=== PATIENT | female | born 1960 | race Caucasian/White ===

== ENCOUNTER → 2016-09-11 | Outpatient (CLI) | payer OTHER ==
[~2016-09-11] MED LIST: ACET500C14 PO; CHOL1CHW16 PO; CYAN500T13 PO; HYDR25TA5 PO; IBUP1CAP9 PO; LEVO100T7 PO; LORA-741 PO; MAGN1CAP2 PO; MAGNSUS5 PO; MISCCAP80 PO; MULT-506 PO; POTA10CA28 PO; ROPI0.25 PO; ROPI1TAB PO; TRAM-10 PO
--- NOTE | 2016-09-11 11:23 | DIAGNOSTIC IMAGING REPORT ---
ULTRASOUND OF THE THYROID GLAND CLINICAL HISTORY: Thyroid nodule. COMPARISON STUDY: Thyroid ultrasound dated 12/27/2013. TECHNIQUE: Real-time, grayscale, and color flow sonography of the thyroid gland is performed utilizing a high-frequency linear transducer. Images are reviewed in the transverse and longitudinal planes. FINDINGS: Right lobe: The right lobe of the thyroid gland is normal in size and homogeneous in echotexture, measuring 4.7 x 1.2 x 1.6 cm. A hypoechoic nodule in the upper pole measures 1.0 x 0.6 x 0.8 cm (previously measured 1.0 x 0.6 x 0.9 cm). Left lobe: The left lobe of the thyroid gland is normal in size and homogeneous in echotexture, measuring 4.5 x 1.1 x 4.5 cm. A 3 mm hypoechoic nodule is incidentally noted in the left lobe. This was present previously but not discretely measured. Isthmus: The thyroid isthmus is normal in appearance and measures 0.2 cm in AP diameter. IMPRESSION: 1. The thyroid gland is normal in size and homogeneous in echotexture. 2. A 1.0 cm nodule in the right lobe has not significantly change from 12/27/2013 and is of low suspicion. Electronically signed by: Simone Eddy M.D. 09/11/2016 11:22 AM Dictated Date/Time: 09/11/2016 11:11 AM
== END | disposition home or self-care (01) ==
LOC: C.ULTR 10:18
PROVIDERS: ATTEND Internal Medicine Endocrinology, Diabetes & Metabolism
DX: E04.1 Nontoxic single thyroid nodule (principal)

== ENCOUNTER → 2016-09-20 | Outpatient (CLI) | payer OTHER ==
[~2016-09-20] MED LIST changes: +GADAVIST IV PRN
--- NOTE | 2016-09-20 14:34 | DIAGNOSTIC IMAGING REPORT ---
LUMBAR SPINE MRI WITH AND WITHOUT CONTRAST HISTORY: Back pain. Peripheral neuropathy. LUMBAR PAIN, PROXIMAL LEG WEAKNESS TECHNIQUE: Multiplanar multisequence MRI of the lumbar spine was performed both before and after the intravenous administration of contrast. COMPARISON: None FINDINGS: For the purpose of the report the L5-S1 disc space will be located on axial image 27 of 30. Moderate degenerative disc change throughout the entire lumbar region. Findings consistent with a posterior laminectomy and fusion at the L4-L5 level. L1-L2: No significant central canal or neural foraminal narrowing. L2-L3: Minimal broad-based disc bulge. Minimal narrowing left neuroforamina. L3-L4: Mild broad-based disc bulge. Mild narrowing of the neuroforamina bilaterally. L4-L5: Prior laminectomy and fusion. No disc herniation or spinal stenosis. L5-S1: Prior laminectomy and fusion. No evidence of disc herniation or spinal stenosis. IMPRESSION: 1. Findings consistent with laminectomies and fusions at L4 and L5. 2. Mild broad-based disc bulge L3-L4 with mild/moderate narrowing of the neuroforamina bilaterally. 3. Minimal broad-based disc bulge L2-L3 with mild narrowing of the left neuroforamina. Electronically signed by: Riki Alvarez M.D. 09/20/2016 2:33 PM Dictated Date/Time: 09/20/2016 2:30 PM
== END | disposition home or self-care (01) ==
LOC: C.MRIBC 13:13
PROVIDERS: ATTEND Psychiatry & Neurology Neurology
DX: M47.816 Spondylosis without myelopathy or radiculopathy, lumbar region (principal); R29.898 Other symptoms and signs involving the musculoskeletal system

== ENCOUNTER 2022-07-09 08:14 | Observation (INO) ==
--- NOTE | 2022-07-01 12:02 | Anesthesiology Consultation ---
Date of Service July 01, 2022 Assessment & Plan (1) Encounter for pre-operative examination: Chart Review Chart Review: Acceptable Risk for Surgery and Patient NOT seen in Pre Admission Testing - Hx of PONV- patient will need to discuss with anesthesiologist DOS if scop patch needed - Pt scheduled as 23 hour observation- pt is NOT Same Day Joint candidate due to no PAT evaluation -COVID screening: Per PAT nursing assessment on 07/01/22. No known COVID-19 positive contacts or current COVID-19 related symptoms. Travel screen negative. Patient vaccinated for Covid. At surgeon discretion if preop Covid testing being done. Left knee arthroscopy, removal loose body 11/08/20= Done under [facility] with LMA #4. Atraumatic LMA insertion History Surgery Operation Date: 07/09/22 07:00 Proposed Procedures p Right Total Knee Arthroplasty - Fei Davenport MD Height/Weight Height: 5 ft 5 in Weight: 91.172 kg Allergies Allergy/AdvReac Type Severity Reaction Status Date / Time bisacodyl Allergy Mild VIOLENTLY Verified 07/01/22 10:50 ILL N &V &DIARRHEA morphine Allergy Unknown RASH Verified 07/01/22 10:50 Influenza Virus Vaccines Allergy SEE COMMENT Verified 07/01/22 10:50 hydrocodone AdvReac Mild DIZZY AND Verified 07/01/22 10:50 NAUSEA Medications Home Medications Medication Instructions Recorded Confirmed Last Taken cyanocobalamin (vitamin B-12) 1,000 mcg PO QPM 07/18/18 07/01/22 11/07/20 1,000 mcg tablet hydrochlorothiazide 25 mg tablet 25 mg PO QAM 07/18/18 07/01/22 11/07/20 lorazepam 0.5 mg tablet 0.5 mg PO HS 07/18/18 07/01/22 11/07/20 potassium chloride 10 mEq 20 meq PO BID 07/18/18 07/01/22 11/07/20 tablet,extended release ropinirole 0.25 mg tablet 0.25 mg PO HS 07/18/18 07/01/22 11/07/20 ropinirole 1 mg tablet 1 mg PO 07/18/18 07/01/22 11/07/20 cholecalciferol (vitamin D3) 50 150 mcg PO QAM 10/26/20 07/01/22 11/07/20 mcg (2,000 unit) capsule (Vitamin D3) vitamin B complex 1 ea PO QDL 10/26/20 07/01/22 11/07/20 Past Medical History Medical History DDD (degenerative disc disease) History of COVID-summer, not tested but had exposure and symptoms>resolved History of depression History of esophageal dilatation HTN (hypertension) Liver cyst monitoring-no changes Neuropathy Osteoporosis PONV (postoperative nausea and vomiting) requests possible scopolamine patch pre op Posterior tibial tendinitis PTSD (post-traumatic stress disorder) Spinal stenosis Thyroid nodule monitoring-no changes Past Family History Family History Daughter PONV (postoperative nausea and vomiting) Other No pertinent family history in first degree relatives Past Surgical History Surgical History History of bladder surgery bladder tack-"always gets a UTI if catheterized" History of cardiac catheterization approx 20 years ago - "heart was racing," no stents/angioplasty, done in [facility] [place]. History of colonoscopy History of esophagogastroduodenoscopy (EGD) History of hysterectomy History of lumbar surgery "CAGE PLACED" History of repair of hiatal hernia History of tonsillectomy Hx laparoscopic cholecystectomy Hx of arthroscopy of knee Hx of myringotomy w/tubes bilat. S/P thyroid biopsy benign Social History Smoking Status: Never smoker Do You Dip or Chew Tobacco: No Hx Alcohol Use: No Hx Substance Use: No substance use type: does not use Lab Results Anesthesia Preop Results Results Anesthesia Widget: WBC 4.47 K/ul (4.8-10.8) L 06/25/22 Hgb 13.7 g/dl (12.0-16.0) 06/25/22 Hct 40.9 % (37.0-47.0) 06/25/22 Plt 284 K/uL (130-400) 06/25/22 Na 139 mmol/L (136-145) 06/25/22 K 3.4 mmol/L (3.5-5.1) L 06/25/22 Cl 107 mmol/L (98-107) 06/25/22 CO2 27 mmol/L (21-32) 06/25/22 BUN 11 mg/dl (6-23) 06/25/22 Creat 0.69 mg/dl (0.6-1.2) 06/25/22 Glucose Level 121 mg/dl (70-99(Fasting)) H 06/25/22 PT 10.4 Seconds (9.0-12.0) 06/25/22 PTT 29.2 Seconds (21.0-31.0) 06/25/22 INR 1.0 (0.9-1.1) 06/25/22 Blood Type O Positive 06/25/22 Antibody Screen NEGATIVE 06/25/22 Testing Laboratory Results Blood Type O Positive 04/18/22 13:20 Antibody Screen NEGATIVE 04/18/22 13:20 Electrocardiogram Date: 04/18/22 Findings: + NSR @ (60bpm) and + no change from (November 07, 2019 per cardio ) Nonspecific ST abnormality Chest X-Ray Date: 04/18/22 Findings: + NAD Echocardiogram Date: 01/27/19 EF: 55-60% LV Function: normal RWMA: + none Other Findings: no LVH or no diastolic dysfunction AV sclerosis is mild, without significant AV stenosis Mild AR Mild MR RVSP is normal Other Testing Carotid Doppler 01/14/2019 = no sonographic evidence of hemodynamically significant stenosis in the right or left carotid arterial system. Antegrade flow is shown in vertebral arteries. Hypertension.
--- NOTE | 2022-07-04 08:32 | History and Physical Report ---
CHIEF COMPLAINT: Persistent right knee pain and discomfort. HISTORY OF PRESENT ILLNESS: The patient is a 62-year-old female who presents for surgical treatment of her right knee. She has got a long history of multiple orthopedic issues over the years. She has been bothered by progressive increasing right knee pain and discomfort that has gradually gotten wor se over the past several years. We have been putting intermittent injections, which have become less successful over time. She describes global pain. A little bit more lateral pain than medial. It i s increased with weightbearing. She would like to have her knee fixed. Of note, she does have a history of a left knee arthroscopy done about a year and a half ago. PAST MEDICAL HISTORY: 1. Hypertension. 2. Low back pain/sciatica. 3. Obesity, BMI of 34. 4. Hiatal hernia. PAST SURGICAL HISTORY: Include: 1. Herniorrhaphy. 2. Back surgery by Dr. Nolan. 3. Esophageal surgery. 4. Left knee scope about a year and a half ago. ALLERGIES: None. CURRENT MEDICATIONS: 1. Requip. 2. Hydrochlorothiazide. 3. Potassium. SOCIAL HISTORY: A 62-year-old female. She is . No significant smoking history. FAMILY HISTORY: Noncontributory. REVIEW OF SYSTEMS: Negative for diabetes, neurologic problem, vascular problem, or bleeding disorder s. No history of DVT or PE. No known bleeding problems. PHYSICAL EXAMINATION: GENERAL: Shows a pleasant middle-aged female. Looks to be in pretty good health. HEENT: Benign. NECK: Supple. No lymphadenopathy. LUNGS: Clear to auscultation. HEART: Regular rate and rhythm. ABDOMEN: Soft, nontender, nondistended. EXTREMITIES: Grossly neurovascularly intact except as follows. Examination of the right knee revea ls the patient walks with a slight bit of a limp. She has got slight valgus alignment to her knee, w hich is increased with weightbearing. She is tender at medial and lateral joint line. Small knee ef fusion. Range of motion 0-125. No instability. No pain with hip motion. X-RAYS: X-ray of the right knee reviewed. It shows advanced lateral compartment DJD. She has compl ete loss of her lateral joint space on her 40-degree flexion films. ASSESSMENT: A 62-year-old female with advanced right knee lateral compartment degenerative joint dis ease. She has failed conservative treatment and would like to have her right knee replaced. PLAN: We are going to proceed with right knee replacement. The risks and benefits of this procedure were explained to the patient and include but not limited to DVT, PE, , infection, neurological injury, vascular injury, bleeding problem, pain, limited range of motion, stiffness, failure to reli brayan her symptoms, incomplete relief of symptoms, etc. The patient understands and desires to proceed . Informed consent was obtained. She is planning to be discharged to home using [facility]. Will use DVT prophylax is including thigh-high TEDs, SCDs, and aspirin twice a day. Job ID: [id number]
[~2022-07-09 08:14] MED LIST changes: -ACET500C14 PO; +ACETAMINOPHEN 500 MG TAB PO SCH; +BUPIVACAINE 0.5 % 5 MG/1 ML PF 10ML VIAL ONE; +BUPIVACAINE LIPOSOME/PF 266 MG, BUPIVACAINE/EPINEPHRINE 50 ML, SODIUM CHLORIDE 0.9% PF ... INFIL SCH; -CHOL1CHW16 PO; -CYAN500T13 PO; +CeleBREX 200 MG CAP PO SCH; +FAMOTIDINE 20 MG TAB PO SCH; -GADAVIST IV PRN; -HYDR25TA5 PO; -IBUP1CAP9 PO; -LEVO100T7 PO; -LORA-741 PO; +LR 60ML/HR IV SCH; -MAGN1CAP2 PO; -MAGNSUS5 PO; +METOCLOPRAMIDE HCL 10 MG TABLET PO SCH; -MISCCAP80 PO; -MULT-506 PO; -POTA10CA28 PO; -ROPI0.25 PO; -ROPI1TAB PO; +ROPIVACAINE 0.5% 5 MG/ML 30 ML VIAL ONE; +Scopolamine 1 MG TDSY TD SCH; -TRAM-10 PO; +TRANEXAMIC ACID 1,000 MG **IV Intra-op IV SCH; +ceFAZolin 2000MG 2,000 MG/15 ML SYR IV SCH; +dexAMETHasone**PF** 10 MG/ML VIAL IV SCH
--- NOTE | 2022-07-09 08:36 | History & Physical Bridge Note ---
Date of Service July 09, 2022 History & Physical Bridge Note I have examined the patient, reviewed the History & Physical and in the interval since the performance of the History & Physical I have noted the following changes of clinical significance: no changes noted
[2022-07-09] MEDS ORDERED: ONDANSETRON INJ 2 MG/ML 2 ML VIAL IV PRN ×2 (09:19→13:51)
[2022-07-09] MEDS ORDERED: ePHEDrine sulfate 50 MG/ML AMP IV PRN (09:19)
[2022-07-09] MEDS ORDERED: ATROPINE SULFATE 0.1 MG/ML 10ML SYR IV PRN (09:19)
[2022-07-09] MEDS ORDERED: fentaNYL citrate PF 100 MCG/2 ML VIAL IV PRN (09:19)
[2022-07-09] MEDS ORDERED: MIDAZOLAM HCL 1 MG/ML 2ML VIAL ONE (09:26)
[2022-07-09] MEDS ORDERED: fentaNYL citrate PF 100 MCG/2 ML VIAL ONE (09:26)
[2022-07-09] MEDS ORDERED: SODIUM CHLORIDE 0.9% PF 50 ML VIAL ONE (10:41)
[2022-07-09] MEDS ORDERED: BUPIVACAINE LIPOSOME 1.3% 266 MG/20 ML VIAL ONE (10:41)
[2022-07-09] MEDS ORDERED: BUPIVACAINE/EPINEPHRINE 0.25% 1:200,000 30 ML VIAL ONE (10:41)
[2022-07-09] MEDS ORDERED: KETOROLAC 30 MG/ML VIAL ONE (11:38)
[2022-07-09] MEDS ORDERED: PROPOFOL IV EMULSION 10 MG/ML 20 ML VIAL IV ONE ×3 (11:38→11:39)
[2022-07-09] MEDS ORDERED: LIDOCAINE 2% MPF LOCAL 5 ML VIAL ONE (11:38)
--- NOTE | 2022-07-09 12:43 | Operative Report ---
PG Post Operative Report Pre & Post Diagnosis Operation Date: 07/09/22 10:40 Pre-Op Diagnosis: Right Knee Advanced Degenerative Joint Disease Post-Op Diagnosis: Right Knee Advanced Degenerative Joint Disease I identified the patient and participated in the time-out.: Yes Procedure Operation Date: 07/09/22 10:40 Actual Procedures p Right Total Knee Arthroplasty(Right) - Fei Davenport MD Surgeon Fei Davenport MD Research Software Engineer Milton Gallegos PA-C Estimated Blood Loss 50 Findings Consistent with Post-Op Diagnosis Operative findings revealed advanced right knee lateral compartment DJD with complete loss of the cartilage surface of the lateral and posterior lateral femoral condyle and the posterior tibial plateau and the lateral side. She had a valgus deformity to her knee. She had grade 3 and some spotty grade 4 changes the patellofemoral joint. The medial compartment was pretty well-preserved. Some mild diffuse osteopenia. Fluids 1200 cc Specimens Right knee sent for pathology Anesthesia Type Spinal MAC Complications none Disposition Accompanied Patient To Recovery: No Indications Patient is a 62-year-old female has had a several year history of gradual progressive increased right knee pain and discomfort and progressive deformity. She been through extensive conservative treatment which became less successful with time. X-rays show advanced lateral compartment arthritis. She elected proceed with total knee arthroplasty. Description of Procedure Operative implants consist of: 1 Biomet Vanguard size 65 right posterior stabilized femoral component. 2. Biomet size 67 tibial tray. 3. 10 mm posterior stabilized polyethylene insert. 4. 31 x 8 all poly patella. The patient was taken the operating, identified, and placed on the operating table supine position protectors were properly padded. IV antibiotics tried by anesthesia team. Spinal anesthetic and adductor canal block had provided in the holding area. Garces catheter was placed in sterile fashion. Right Tetrick was then placed in the right lower extremities then prepped and draped in usual sterile fashion. The right leg was elevated exsanguinated with use of an Esmarch and the tourniquet was placed at 300 mmHg. An anterior approach of the right knee was then performed to longitudinal incision centered over the patella. Sharp dissection was carried through subcutaneous tissue down the extensor mechanism. A medial parapatellar arthrotomy incision was made. Some subperiosteal dissection was carried out medially. The fat pad was resected from Neath patella tendon. Lateral patellofemoral ligament was released. Patella subluxated laterally and the knee was flexed. The osteophytes taken off distal femur P the ACL PCL then released from distal femur the tibia subluxated anteriorly. The external tibial alignment jig was then placed in the interface the tibia and adjusted 12 mm medially. Proximal tibial cut was made remove about 3 mm of bone from the medial side. The tibia was then sized to a size 67. Attention drawn the femur. The distal femur was entered with a sharp drop with intramedullary canal was suction. A right 5 degree valgus cutting guide was placed. Distal femoral cutting block was pinned in place. Distal femoral cut was made to take an additional 3 mm of bone off distal femur. The femur was then sized to size 65. The AP cutting block was pinned parallel to the epicondylar axis which was 5 degrees of external rotation. The anterior cut, anterior chamfer, posterior cut, posterior chamfer cuts were made. The box cutting guide was placed in just slight lateral and the box cut was made. The knee was flexed. The remnants of the medial and lateral menisci were excised. The osteophytes taken off the posterior aspect the femur. A trial femoral component was placed. The tibial tray was pinned in maximum external rotation and the drill and stem punch used to create defect in proximal tibia for the tibial tray. Knee was then trialed and the 10 mm insert fit most appropriately. Attention drawn the patella. The patella was cleaned of all soft tissues. Patella thickness measured 21 mm in thickness was cut down to 14. Was sized to a size 31 patella. The lug holes were drilled for the 31 patella. The lateral osteophytes removed. Patella button was placed. Knee was taken through range of motion patella tracked nicely with no thumbs test. Attention drawn to placing the permanent components. All trial components were removed. Bone plug was placed in the distal femur limit blood loss. Double batch Palacos G cement was mixed. Biomet GERSguard size 65 right posterior stabilized femoral component, a size 67 tibial tray, a 10 mm posterior stabilized polyethylene insert, and a 31 x 8 all Paller patella then cemented in place. Knee was brought out into full extension till cement hardened. Final cement check was then performed. Pericapsular tissues were injected with total of 100 cc of combination of 20 cc of Exparel, 30 cc normal saline, 50 cc of quarter percent Marcaine with epinephrine. The patient did receive 1 g tranexamic acid. The tourniquet was then let down for final tourniquet time of 51 minutes. Hemostasis assured use electrocautery. Extensor mechanism then closed with combination 1 PDS suture and 1 Vicryl suture in a [id number] fashion. Extensor mechanism checked found to be intact with subcutaneous tissue then closed with 2 Dexon suture in a buried interrupted fashion skin was closed skin tatiana. Leg was then cleaned and dried and sterile dressed with Xeroform, 4 fours, sterile cast padding, Wilder bandage were applied. Patient then transferred to the recovery room in stable condition. Patient tolerated procedure well and there were no complications. Milton Gallegos, my physician itinerant teacher assistant, was present for the entire procedure. His assistance was essential and required for appropriate patient positioning, prepping and draping, surgical exposure, performing the technical details of the operation, placement the implants, closure of the wound, and placement of the sterile bandage. I attest to the content of the Intraoperative Record and any orders documented therein. Any exceptions are noted below.
--- NOTE | 2022-07-09 13:16 | XRay Report ---
TWO VIEWS RIGHT KNEE CLINICAL HISTORY: Postoperative examination. FINDINGS: AP and crosstable lateral portable views of the right knee are obtained. A right knee arthr oplasty is in near anatomic alignment. There has been undersurface remodeling of the patella. No acut e fracture is seen. There are expected postoperative changes around the knee including skin clips, so ft tissue edema, and subcutaneous gas. IMPRESSION: Expected postoperative changes status post right knee arthroplasty. No acute fracture is seen. ACT 112: Negative or not required by law. Electronically signed by: Simone Eddy M.D. 07/09/2022 1:15 PM
--- NOTE | 2022-07-09 13:22 | Anesthesiology Progress Note ---
Date of Service July 09, 2022 Anesthesia Post Procedure Vital Signs Vital Signs: Temp Pulse Pulse Resp BP Pulse Ox O2 Del Method 07/09/22 13:15 99 H 14 136/76 92 Room Air 07/09/22 13:05 103 H 16 134/77 92 Room Air 07/09/22 12:55 100 H 14 122/76 94 Room Air 07/09/22 12:45 105 H 17 135/65 97 Room Air 07/09/22 12:39 97.3 F L 97 H 16 120/60 97 Oxymask 07/09/22 08:42 98.2 F 81 18 154/86 H 98 Room Air O2 Flow Rate 07/09/22 13:15 07/09/22 13:05 07/09/22 12:55 07/09/22 12:45 07/09/22 12:39 5 07/09/22 08:42 Pain Intensity Right Knee: Pain Intensity: 8 Transfer of Care Handoff Completed per policy Notes Mental Status: alert / awake / arousable and participated in evaluation Patient Amnestic to Procedure: Yes Nausea / Vomiting: adequately controlled Pain: adequately controlled Airway Patency, RR, SpO2: stable & adequate BP & HR: stable & adequate Hydration State: stable & adequate Neuraxial Anesthesia: was administered and sensory block is resolving Anesthetic Complications: no major complications apparent and Pt Satisfied with anesthetic care
[2022-07-09] MEDS ORDERED: METOCLOPRAMIDE HCL INJ 5 MG/ML 2 ML VIAL IV PRN (13:51)
[2022-07-09] MEDS ORDERED: ALUMINUM/MAGNESIUM SUSP 30 ML UDC PO PRN (13:51)
[2022-07-09] MEDS ORDERED: MAGNESIUM HYDROXIDE SUSP 30 ML UDC PO PRN (13:51)
[2022-07-09] MEDS ORDERED: NALOXONE HCL 0.4 MG/1 ML VIAL/CARP IV PRN (13:51)
[2022-07-09] MEDS ORDERED: bisacodyL 10 MG SUPP PR PRN (13:51)
[2022-07-09] MEDS ORDERED: HYDROmorphone INJ 0.5 MG/0.5 ML SYR IV PRN (13:51)
[2022-07-09] MEDS: SODIUM CHLORIDE 0.9% 1000ML 1,000 ML IV SCH ×2 (14:06→23:51)
[2022-07-09] MEDS: ACETAMINOPHEN 500 MG TAB PO SCH ×2 (14:59→20:05)
[2022-07-09] MEDS: KETOROLAC 30 MG/ML VIAL IV SCH ×2 (15:00→20:05)
[2022-07-09] MEDS: Scopolamine CHECK PATCH PLACEMENT SCH (15:13)
[2022-07-09] MEDS: oxyCODONE HCL IR 5 MG TAB (IMMEDIATE RELEASE) PO PRN (15:46)
[2022-07-09] MEDS: ceFAZolin 2000MG 2,000 MG/15 ML SYR IV SCH (17:39)
[2022-07-09] MEDS ORDERED: TRANEXAMIC ACID / 0.7% NACL 1,000 MG/100 ML BAG IV SCH (18:45)
[2022-07-09] MEDS: DOCUSATE SODIUM 100 MG CAP PO SCH (19:45)
[2022-07-09] MEDS: ASPIRIN 81 MG ECTAB PO SCH (20:05)
[2022-07-09] MEDS: POTASSIUM CHLORIDE CRTAB 20 MEQ TABCR PO SCH (20:06)
[2022-07-09] MEDS ORDERED: rOPINIRole HCL 0.25 MG TABLET PO SCH (21:00)
[2022-07-09] MEDS ORDERED: rOPINIRole HCL 1 MG TABLET PO SCH (21:00)
[2022-07-09] MEDS ORDERED: SENNA 8.6 MG TAB PO SCH (21:00)
[2022-07-09] MEDS ORDERED: LORazepam 0.5 MG TAB PO SCH (21:00)
[2022-07-09] MEDS ORDERED: CYANOCOBALAMIN (B-12) 500 MCG TABLET PO SCH (21:00)
[2022-07-10] MEDS: ceFAZolin 2000MG 2,000 MG/15 ML SYR IV SCH (02:02)
[2022-07-10] MEDS: KETOROLAC 30 MG/ML VIAL IV SCH ×3 (02:02→14:59)
[2022-07-10] MEDS: Scopolamine CHECK PATCH PLACEMENT SCH ×2 (02:25→08:44)
[2022-07-10] MEDS: oxyCODONE HCL IR 5 MG TAB (IMMEDIATE RELEASE) PO PRN ×2 (06:11→12:31)
[2022-07-10 07:57] LABS: Hematocrit (blood only) 31.3 % (37.0-47.0); Hemoglobin 10.9 g/dl (12.0-16.0); Mean Corpuscular Hemoglobin 29.9 pg (25.0-34.0); Mean Corpuscular Hgb Conc 34.8 g/dL (32.0-36.0); Mean Platelet Volume 10.5 fL (9.4-12.4); Platelet Count 264 K/uL (130-400); RDW Coefficient of Variation 12.9 % (11.5-14.5); RDW Standard Deviation 40.5 fL (36.4-46.3); Red Blood Count 3.64 M/uL (4.20-5.40); White Blood Count 10.24 K/ul (4.8-10.8)
[2022-07-10] MEDS ORDERED: dexAMETHasone 10 MG in SYRINGE 0 ML IV SCH (08:00)
[2022-07-10 08:22] LABS: BUN Creatinine Ratio 18.5 (10-20); Calcium 8.1 mg/dl (8.6-10.3); Creatinine Clr Calc Pharmacy 119.6 ml/min; Est GFR (African American) 116.4 ml/min; Est GFR (Non-African American) 100.4 ml/min; Potassium 3.7 mmol/L (3.5-5.1)
[2022-07-10] MEDS: ACETAMINOPHEN 500 MG TAB PO SCH ×2 (08:44→14:59)
[2022-07-10] MEDS: ASPIRIN 81 MG ECTAB PO SCH (08:45)
[2022-07-10] MEDS: DOCUSATE SODIUM 100 MG CAP PO SCH ×2 (08:45→10:18)
[2022-07-10] MEDS: POTASSIUM CHLORIDE CRTAB 20 MEQ TABCR PO SCH (08:45)
[2022-07-10] MEDS ORDERED: CHOLECALCIFEROL 1,000 UNITS 25 MCG TAB PO SCH (09:00)
[2022-07-10] MEDS ORDERED: MULTIVITAMIN TAB PO SCH (09:00)
[2022-07-10] MEDS ORDERED: hydroCHLOROthiazide 25 MG TAB PO SCH (09:00)
[2022-07-10] MEDS ORDERED: VITAMIN B COMPLEX TAB PO SCH (11:30)
--- NOTE | 2022-07-10 14:18 | Progress Notes ---
DATE OF SERVICE: 07/10/2022 SUBJECTIVE: A 62-year-old female postoperative day 1 from right knee replacement. She is doing well . Pain has been controlled. Therapy went well. No chest pain or shortness of breath. Hoping to go home today. OBJECTIVE: VITAL SIGNS: Temperature is 36.5. Vital signs are stable. PHYSICAL EXAMINATION: GENERAL: Physical exam shows a pleasant middle-aged female. She is sitting on her bedside chair and looks comfortable. LUNGS: Clear to auscultation. HEART: Has a regular rate and rhythm. ABDOMEN: Soft and nontender. EXTREMITIES: Examination of the right leg reveals the leg to be well aligned. Dressing is clean, dr y, and intact. She can dorsiflex and plantarflex her foot appropriately. She is neurologically inta ct. LABORATORY DATA: Hemoglobin 10.9. Hematocrit 31.3. Electrolytes are stable. ASSESSMENT: A 62-year-old female postoperative day 1 from right knee replacement, doing quite well. Pain is controlled. She is neurologically intact. PLAN: 1. DVT prophylaxis to include thigh-high TEDs, SCDs, and aspirin twice a day. 2. PT, OT, and weightbear as tolerated. Right total knee protocol. 3. Pain control, doing okay with current pain regimen. 4. Disposition: Plan to discharge her to home with some home health today. Job ID: [id number]
--- NOTE | 2022-07-12 13:29 | Discharge Summary ---
Date of Service July 12, 2022 Discharge Data Procedures Performed Operation Date: 07/09/22 10:40 Actual Procedures p Right Total Knee Arthroplasty(Right) - Fei Davenport MD Hospital Course (1) Status post total right knee replacement: This is a 62 year old patient admitted on 07/09/22 and underwent total knee arthroplasty. She tolerated the procedure well and there were no complications. Transferred to the PACU post op and later to the orthopedic floor for further care. She was given ancef for antibiotic prophylaxis. She was also given VAL stockings, SCDs, and aspirin for DVT prophylaxis. Hemoglobin, hematocrit, and vital signs were monitored during her hospital stay and remained stable. Did not require any blood transfusions. There were no complications during her hospital stay. By post op day #1 the patient was tolerating a regular diet, pain was reasonably controlled with oral pain medicine, and she was participating in physical therapy. On post op day #1 the patient was discharged home and set up with home health care. She was given printed discharge instructions including prescriptions for extra strength tylenol, aspirin, ketorolac, zofran, senokot, and oxycodone. Continue physical therapy, weight bearing as tolerated. Continue VAL stockings. Follow up approximately 2 weeks post op or sooner if there are problems or concerns. Coding Level of Care Code None Diagnoses Status post total right knee replacement Z96.651
== END 2022-07-10 15:50 | disposition home or self-care (01) ==
LOC: 3E 08:14 → ASU 08:14

== ENCOUNTER 2024-11-16 14:02 | Observation (INO) ==
--- NOTE | 2024-11-16 14:32 | XRay Report ---
XR chest 1V portable CLINICAL HISTORY: Sepsis COMPARISON STUDY: 04/18/2022 FINDINGS: Heart size and pulmonary vasculature are normal. No consolidation or pleural effusion. No p neumothorax. IMPRESSION: No acute findings. ACT 112: Negative or not required by law. Electronically signed by: Cameron Swanson M.D. 11/16/2024 2:31 PM
[2024-11-16 15:15] LABS: Hematocrit (blood only) 43.5 % (37.0-47.0); Hemoglobin 14.4 g/dl (12.0-16.0); Mean Corpuscular Hemoglobin 29.5 pg (25.0-34.0); Mean Corpuscular Volume 89.1 fL (80.0-100.0); Platelet Count 269 K/uL (130-400); RDW Standard Deviation 42.2 fL (36.4-46.3); Red Blood Count 4.88 M/uL (4.20-5.40); White Blood Count 12.29 K/ul (4.8-10.8)
--- NOTE | 2024-11-16 15:25 | Emergency Department Note ---
Impression & Plan Complicated urinary tract infection, UTI due to extended-spectrum beta lactamase (ESBL) producing Escherichia coli, Leukocytosis ED Provider Note NAME: BRENDA HUDSON AGE: 64 SEX: F : 1960 ARRIVES VIA: Walk-In INFORMANT: Patient ED PROVIDER(S): Marco Mahoney MD CHIEF COMPLAINT: UTI, referred for IV antibiotics. PLAN: Disposition: Admit MEDICAL DECISION MAKING: The patient is a pleasant 64-year-old woman with a past medical history of recurrent UTIs,, hypertension, hyperlipidemia who presents to emergency department via walk-in referred by her PCP office for complicated urinary tract infection with need for IV antibiotics in the setting of the patient reporting completion of 2 courses of outpatient antibiotics including doxycycline followed by Macrobid which she reports starting only yesterday. However, she reports her symptoms have worsened with generalized bodyaches, feverishness and burning with urination. She reports low back pain. She feels as if she has the flu. Patient denies cough, congestion, chest pain or shortness of breath. She reports nausea but denies vomiting. On evaluation patient is fatigued appearing but no distress, afebrile heart in the 90s and blood pressure 180/100s and vital signs otherwise stable. She appears clinically dry. She has mild lower abdominal discomfort without discrete tenderness. She has no significant CVA tenderness. EKG without overt acute ischemia. CXR negative for acute cardiopulmonary process per my personal preliminary review/interpretation. ' WBC 12.2 K with neutrophilia but no left shift. H/H and platelets within normal limits. Chemistry without metabolic acidosis. Electrolytes and LFTs unremarkable. HS troponin 4.0, within normal limits. Lipase is not elevated. Procalcitonin is not elevated. UA with WBCs but no bacteria or nitrates but in the setting of recent antibiotic treatment with urine culture from 11/[address]. [address] of the abdomen pelvis was performed and demonstrates bladder wall thickening with perivesicular inflammatory change with a single focus of gas within the bladder lumen suspicious for infection given no catheterization preceding. No evidence of upper infection. Blood cultures were obtained and treatment initiated with IV ertapenem. Patient agrees with plan for admission for further management. Case was discussed with Dr. Skye Souza, admitting resident with Dr. Bliss, [facility] hospitalist who will evaluate the patient for admission. Triage Nursing notes reviewed and agree them. Prior/external medical records reviewed Vital Signs: reviewed Differential diagnosis: Renal colic, UTI, appendicitis, diverticulitis, mesenteric ischemia, aortic pathology, infections, inflammatory bowel disease, PUD, biliary pathology, as well as other pathologies. ER treatment provided: See below. Diagnostics interpreted by me: ECG: Normal sinus rhythm, 91 bpm, no ectopy, nonspecific ST abnormality, no overt ST elevation or depression, QTc 403, QRS 72. Cardiac Monitoring: An order for continuous cardiac monitoring was placed and demonstrated normal sinus rhythm, 91 bpm, no ectopy. Laboratory studies: See below Imaging studies: See below Consultation(s): Case was discussed with Dr. Skye Souza, admitting resident with Dr. Bliss, [facility] hospitalist who will evaluate the patient for admission. HPI: Per MDM. ROS: See above HPI for pertinent positives & negatives. A total of 10 systems reviewed and were otherwise negative. VITALS:See Below PHYSICAL EXAMINATION: GENERAL: Awake, alert, fatigued-appearing, in no distress HENT: Normocephalic, atraumatic. Oropharynx with dry mucous membranes and otherwise unremarkable. EYES: Normal conjunctiva. Sclera non-icteric. NECK: Supple. No nuchal rigidity. FROM. No JVD. RESPIRATORY: Clear to auscultation. CARDIAC: Regular rate, normal rhythm. Extremities warm and well perfused. Pulses equal. ABDOMEN: Soft, non-distended. Mild lower abdominal discomfort without discrete tenderness to palpation. No rebound or guarding. MUSCULOSKELETAL: Chest examination reveals no tenderness. The back is symmetrical on inspection without obvious abnormality. There is no CVA tenderness to palpation. No joint edema. LOWER EXTREMITIES: Calves are equal size bilaterally and non-tender. No edema. No discoloration. NEURO: Normal sensorium. No sensory or motor deficits noted. SKIN: No rash or jaundice noted. Marco Mahoney MD Past Med/Surg History Problem List (Updated 11/17/24 @ 00:41 by Marco Mahoney MD) Leukocytosis (Acute) UTI due to extended-spectrum beta lactamase (ESBL) producing Escherichia coli (Acute) Complicated urinary tract infection (Acute) HTN (hypertension) Constipation Sepsis Statin intolerance HLD (hyperlipidemia) GERD (gastroesophageal reflux disease) History of depression HTN (hypertension) Hypokalemia Restless leg syndrome Idiopathic peripheral neuropathy Degenerative disc disease, lumbar Degenerative arthritis of knee, bilateral Medical History Sinus tarsi syndrome of left ankle History of COVID-19 summer 2019, not tested but had exposure and symptoms>resolved Encounter for pre-operative examination Osteoporosis DDD (degenerative disc disease) Spinal stenosis Liver cyst monitoring-no changes History of esophageal dilatation Thyroid nodule monitoring-no changes PTSD (post-traumatic stress disorder) Neuropathy PONV (postoperative nausea and vomiting) requests possible scopolamine patch pre op Surgical History History of cataract surgery b/l Dr. Silva August 2024, September 2024 Status post total right knee replacement Hx of arthroscopy of knee Hx laparoscopic cholecystectomy Hx of myringotomy w/tubes bilat. History of tonsillectomy History of bladder surgery bladder tack-"always gets a UTI if catheterized" History of hysterectomy TVH History of lumbar surgery "CAGE PLACED" History of colonoscopy History of repair of hiatal hernia History of esophagogastroduodenoscopy (EGD) S/P thyroid biopsy benign History of cardiac catheterization approx 20 years ago - "heart was racing," no stents/angioplasty, done in [facility] [place]. Family History Daughter PONV (postoperative nausea and vomiting) Grandmother (Paternal) Breast cancer Father Myocardial infarction, Onset Age: 46 Brother Myocardial infarction Other No pertinent family history in first degree relatives Denies family history of Ovarian cancer Prostate cancer Colorectal cancer Uterine cancer Social History Smoking Status: Never smoker Second Hand Exposure: No; Do You Dip or Chew Tobacco: No; Hx Alcohol Use: No Hx Substance Use: No Preferred Language: Polish Communication Ability: Effective Visual Impairment: Limited Hearing Ability: Normal Director Validation Required: No Beliefs That Will Affect Care: None marital status: Current Living Situation: Spouse current occupational status: unemployed current occupation: homemaker Feels Safe at Home: Yes Childhood Exposure to Second-Hand Smoke: Yes caffeine: Yes (tea) during the past year weight has: remained stable Dental Care, Regularly: Yes Physical Activity Frequency: Daily Seatbelt Use: always Sunscreen Use: Yes (sometimes) Assistive Devices: Walker Allergies Allergies Allergy/AdvReac Type Severity Reaction Status Date / Time bisacodyl Allergy Mild VIOLENTLY Verified 11/16/24 11:36 ILL N &V &DIARRHEA morphine Allergy Unknown RASH Verified 11/16/24 11:36 Influenza Virus Vaccines Allergy SEE COMMENT Verified 11/16/24 11:36 hydrocodone AdvReac Mild DIZZY AND Verified 11/16/24 11:36 NAUSEA Home Meds Home Medications Medication Instructions Recorded Confirmed ropinirole 1 mg tablet 1 mg PO HS 07/18/18 11/16/24 bupropion HCl 150 mg 24 hr tablet, 150 mg PO QAM 08/20/23 11/16/24 extended release (Wellbutrin XL) famotidine 20 mg tablet (Pepcid) 20 mg PO DAILY PRN Heartburn 07/26/24 11/16/24 ropinirole 0.25 mg tablet 0.5 mg PO HS 07/26/24 11/16/24 hydrochlorothiazide 25 mg tablet 25 mg PO QAM 08/25/24 11/16/24 vitamin B complex 1 ea PO QDL 08/25/24 11/16/24 cholecalciferol (vitamin D3) 25 25 mcg PO DAILY 09/20/24 11/16/24 mcg (1,000 unit) capsule potassium chloride 10 mEq 40 meq PO DAILY 09/20/24 11/16/24 tablet,extended release pantoprazole 40 mg tablet,delayed 40 mg PO DAILY PRN as directed 11/16/24 11/16/24 release Previous Rx's Medication Instructions Recorded Jean Morenoe #1 ea 07/26/24 lorazepam 0.5 mg tablet 1 mg (2 x 0.5 mg) PO HS PRN 10/28/24 anxiety 30 days #60 tabs nitrofurantoin 100 mg PO Q12H 7 days #14 caps 11/15/24 monohydrate/macrocrystals 100 mg capsule Results & Data (ED) Vital Signs Vital Signs - 24 hr 11/16/24 14:06 11/16/24 14:33 11/16/24 14:51 Temperature 36.9 C Temperature Source Oral Pulse Rate 93 H 91 H Pulse Rate [Apical] 100 H Pulse Rate from SpO2 Sensor Respiratory Rate 20 18 24 Respiratory Effort / Characteristics Non-Labored Spontaneous Non-Labored Spontaneous Respiratory Depth Normal Normal Respiratory Pattern Regular Regular Blood Pressure 185/122 H Blood Pressure [Right Arm] 156/115 H Blood Pressure Mean 143 Blood Pressure Mean [Right Arm] 128 Blood Pressure Position [Right Arm] Sitting Pulse Oximetry 99 97 Oxygen Delivery Method Room Air Room Air Sepsis Recent Fever Within 48 Hours No Sepsis New/Unexplained Change in Mental Status N/A Sepsis Action Taken by Nursing No Action Required 11/16/24 14:57 11/16/24 15:00 11/16/24 15:18 Temperature Temperature Source Pulse Rate 96 H 97 H 97 H Pulse Rate [Apical] Pulse Rate from SpO2 Sensor Respiratory Rate 24 Respiratory Effort / Characteristics Respiratory Depth Respiratory Pattern Blood Pressure Blood Pressure [Right Arm] Blood Pressure Mean Blood Pressure Mean [Right Arm] Blood Pressure Position [Right Arm] Pulse Oximetry 95 Oxygen Delivery Method Sepsis Recent Fever Within 48 Hours Sepsis New/Unexplained Change in Mental Status Sepsis Action Taken by Nursing 11/16/24 15:27 11/16/24 15:30 11/16/24 15:33 Temperature Temperature Source Pulse Rate 93 H 94 H Pulse Rate [Apical] 102 H Pulse Rate from SpO2 Sensor 95 H Respiratory Rate 24 24 26 H Respiratory Effort / Characteristics Non-Labored Spontaneous Respiratory Depth Normal Respiratory Pattern Regular Blood Pressure Blood Pressure [Right Arm] 173/96 H Blood Pressure Mean Blood Pressure Mean [Right Arm] 121 Blood Pressure Position [Right Arm] Lying Pulse Oximetry 95 96 Oxygen Delivery Method Room Air Sepsis Recent Fever Within 48 Hours Sepsis New/Unexplained Change in Mental Status Sepsis Action Taken by Nursing 11/16/24 16:00 11/16/24 16:30 11/16/24 16:45 Temperature Temperature Source Pulse Rate 100 H 102 H Pulse Rate [Apical] Pulse Rate from SpO2 Sensor 102 H 102 H Respiratory Rate 22 16 Respiratory Effort / Characteristics Respiratory Depth Respiratory Pattern Blood Pressure 158/84 H 180/95 H 145/92 H Blood Pressure [Right Arm] Blood Pressure Mean 108 119 109 Blood Pressure Mean [Right Arm] Blood Pressure Position [Right Arm] Pulse Oximetry 93 94 Oxygen Delivery Method Sepsis Recent Fever Within 48 Hours Sepsis New/Unexplained Change in Mental Status Sepsis Action Taken by Nursing 11/16/24 16:47 11/16/24 16:47 Temperature Temperature Source Pulse Rate Pulse Rate [Apical] Pulse Rate from SpO2 Sensor Respiratory Rate Respiratory Effort / Characteristics Respiratory Depth Respiratory Pattern Blood Pressure 145/92 H 145/92 H Blood Pressure [Right Arm] Blood Pressure Mean 113 113 Blood Pressure Mean [Right Arm] Blood Pressure Position [Right Arm] Pulse Oximetry Oxygen Delivery Method Sepsis Recent Fever Within 48 Hours Sepsis New/Unexplained Change in Mental Status Sepsis Action Taken by Nursing Laboratory Data Attestation: I reviewed the patient's lab results. 11/16/24 14:45 11/16/24 14:45 Lab Results 11/16/24 11/16/24 Range/Units 14:45 16:55 WBC 12.29 H (4.8-10.8) K/ul RBC 4.88 (4.20-5.40) M/uL Hgb 14.4 (12.0-16.0) g/dl Hct 43.5 (37.0-47.0) % MCV 89.1 (80.0-100.0) fL MCH 29.5 (25.0-34.0) pg MCHC 33.1 (32.0-36.0) g/dL RDW Std Deviation 42.2 (36.4-46.3) fL RDW Coeff of Nina 12.9 (11.5-14.5) % Plt Count 269 (130-400) K/uL MPV 10.0 (9.4-12.4) fL Immature Gran % (Auto) 0.5 % Neut % (Auto) 92.9 % Lymph % (Auto) 2.4 % [place] % (Auto) 2.8 % Eos % (Auto) 1.1 % Baso % (Auto) 0.3 % Neut # (Auto) 11.41 H (1.40-6.50) K/uL Lymph # (Auto) 0.30 L (1.20-3.40) K/uL [place] # (Auto) 0.35 (0.11-0.59) K/uL Eos # (Auto) 0.13 (0.00-0.50) K/uL Baso # (Auto) 0.04 (0.00-0.20) K/uL Immature Gran # (Auto) 0.06 (0.01-0.20) K/uL PT 10.3 (9.0-12.0) Seconds INR 0.9 (0.9-1.1) Sodium 138 (136-145) mmol/L Potassium 3.6 (3.5-5.1) mmol/L Chloride 102 (98-107) mmol/L Carbon Dioxide 28 (21-32) mmol/L Anion Gap 8 (3-11) BUN 10 (6-23) mg/dl Creatinine 0.70 (0.6-1.2) mg/dl Est Cr Clr Drug Dosing 86.0 ml/min eGFR 95.92 BUN/Creatinine Ratio 14.3 (10-20) Glucose 104 H (70-99(Fasting)) mg/dl Lactate 1.6 (0.4-2.0) mmol/L Calcium 9.3 (8.6-10.3) mg/dl Magnesium 1.8 (1.7-2.4) mg/dl Total Bilirubin 0.6 (0.2-1.0) mg/dl Direct Bilirubin 0.1 (0-0.2) mg/dl AST 19 (13-39) U/L ALT 24 (7-52) U/L Alkaline Phosphatase 98 (34-104) U/L Troponin I High Sens 4.0 (0-14) pg/ml Total Protein 7.1 (6.0-8.3) gm/dl Albumin 4.2 (3.4-5.0) gm/dl Lipase 4 L (11-82) U/L Procalcitonin 0.05 (0-0.5) ng/ml Urine Color Yellow Urine Appearance Clear (Clear) Urine pH 8.0 H (4.5-7.5) Ur Specific [place] 1.038 H (1.000-1.030) Urine Protein Negative (Negative) Urine Glucose (UA) Negative (Negative) Urine Ketones Negative (Negative) Urine Blood Negative (Negative) Urine Nitrite Negative (Negative) Urine Bilirubin Negative (Negative) Urine Urobilinogen Negative (Negative) Ur Leukocyte Esterase Trace H (Negative) Urine WBC (Auto) 11-20 H (0-5) /hpf Urine RBC (Auto) 0-2 (0-2) /hpf U Hyaline Cast (Auto) 0-2 (0-2) /lpf U Epithel Cells (Auto) 3-5 H (0-2) /hpf Urine Bacteria (Auto) None Seen (None Seen) Urine Comment Administered Medications Acetaminophen (Acetaminophen 325 Mg Tab) 650 mg PO Q4H PRN PRN Reason: Pain or Fever Stop: 12/16/24 19:30 Last Admin: 11/16/24 19:53 Dose: 650 mg Documented By: GUILLERMO Enoxaparin Sodium (Enoxaparin Inj 40 Mg/0.4 Ml Syr) 40 mg SQ Q24H PETER Stop: 12/16/24 19:59 Last Admin: 11/16/24 19:56 Dose: 40 mg Documented By: GUILLERMO Lactated Ringer's (Lr) 1,000 mls @ 125 mls/hr IV .Q8H PETER Stop: 11/17/24 10:14 Last Admin: 11/16/24 20:04 Dose: 125 mls/hr Documented By: GUILLERMO Lorazepam (Lorazepam 1 Mg Tab) 1 mg PO HS PRN PRN Reason: anxiety Stop: 12/16/24 19:30 Last Admin: 11/16/24 19:54 Dose: 1 mg Documented By: GUILLERMO Pantoprazole Sodium (Pantoprazole 40 Mg Tab) 40 mg PO DAILY PRN PRN Reason: reflux Stop: 12/16/24 19:30 Last Admin: 11/16/24 19:56 Dose: 40 mg Documented By: GUILLERMO Polyethylene Glycol (Polyethylene (Miralax) 17 Gm Pack) 34 gm PO BID PETER Stop: 12/16/24 20:59 Last Admin: 11/16/24 19:54 Dose: 34 gm Documented By: GUILLERMO Ropinirole HCl (Ropinirole Hcl 1 Mg Tablet) 1 mg PO HS PETER Stop: 12/16/24 20:59 Last Admin: 11/16/24 19:55 Dose: 1 mg Documented By: GUILLERMO Ropinirole HCl (Ropinirole Hcl 0.25 Mg Tablet) 0.5 mg PO HS PETER Stop: 12/16/24 20:59 Last Admin: 11/16/24 19:56 Dose: 0.5 mg Documented By: GUILLERMO Discontinued Medications Sodium Chloride (Nss) 1,000 mls @ 999 mls/hr IV .Q1H1M ONE Stop: 11/16/24 15:17 Last Infusion: 11/16/24 17:20 Dose: Infused Documented By: Admin: 11/16/24 15:32 Dose: 999 mls/hr Documented By: DIANE Acetaminophen (Ofirmev) 1,000 mg in 100 mls @ 400 mls/hr IV NOW STA Stop: 11/16/24 15:27 Last Infusion: 11/16/24 15:57 Dose: Infused Documented By: Admin: 11/16/24 15:31 Dose: 400 mls/hr Documented By: DIANE Ertapenem (Invanz 1000mg) 1,000 mg in 10 mls @ 2 mls/min IV NOW STA Stop: 11/16/24 15:17 Last Admin: 11/16/24 15:32 Dose: 2 mls/min Documented By: DIANE Ioversol (Optiray 320 100ml) 90 ml IV ONCE ONE Stop: 11/16/24 16:08 Last Admin: 11/16/24 16:07 Dose: 90 ml Documented By: WENDY Ondansetron HCl (Ondansetron Inj 2 Mg/Ml 2 Ml Vial) 4 mg IV NOW STA Stop: 11/16/24 15:14 Last Admin: 11/16/24 15:32 Dose: 4 mg Documented By: DIANE Imaging Data Radiologist's Impression: Chest X-Ray 11/16/24 14:18 XR chest 1V portable CLINICAL HISTORY: Sepsis COMPARISON STUDY: 04/18/2022 FINDINGS: Heart size and pulmonary vasculature are normal. No consolidation or pleural effusion. No pneumothorax. IMPRESSION: No acute findings. ACT 112: Negative or not required by law. Electronically signed by: Camerno Swanson M.D. 11/16/2024 2:31 PM Abdomen/Pelvis CT 11/16/24 15:15 EXAMINATION: Abdomen and pelvis CT with CLINICAL HISTORY: Complicated UTI PRIORS: 04/15/2024 TECHNIQUE: Contiguous axial images were obtained through the abdomen and pelvis with the use of intravenous contrast. Sagittal and coronal reformations are supplied. FINDINGS: Mild hypoventilatory changes at the lung bases. The liver is enlarged measuring 18.7 cm with homogeneous enhancement. Small hepatic cyst is present subcapsular. Gallbladder surgically absent. The portal vein, pancreas, spleen, under distended stomach, adrenals, aorta and IVC are morphologically unremarkable. Surgical clips present in the upper abdomen. Small hiatal hernia is noted. Kidneys are in early excretory phase with bilaterally symmetric appearance, no striated nephrogram or abscess. Left parapelvic cysts are present. No uroepithelial contrast enhancement, hydronephrosis or hydro ureter. Urinary bladder distends normally with mild wall thickening and perivesicular inflammatory change. Single focus of gas present in the urinary bladder. No gas in the urinary bladder wall. No free fluid or adenopathy in the pelvis. Large amount of formed stool present in the colon. No dilated loops of bowel. No extraluminal gas, ascites or adenopathy. Postsurgical change of the lumbar spine with no acute osseous abnormality. IMPRESSION: 1. Mild circumferential urinary bladder wall thickening with mild perivesicular inflammatory change. A single focus of gas is present in the urinary bladder lumen. Please correlate if there is been recent instrumentation or if this could possibly represent a gas producing organism. No gas within the urinary bladder wall, evidence of pyelonephritis or renal abscess. 2. Extremely large amount of formed stool in the colon with no dilated loops of bowel. 3. Hepatomegaly. ACT 112: Positive. There are findings on this examination that require communication between the performing entity and the patient following Patient Test Result Information Act ([place] ACT 112) guidelines. Electronically signed by Zoraida White 11-16-2024 5:26 PM Discharge Plan Visit Data Chief Complaint: Referred by Doctor Stated Complaint: DR VIRGEN REF FOR IV ANTIBIOTICS ED Provider: Marco Mahoney Discharge Problem: Complicated urinary tract infection, UTI due to extended-spectrum beta lactamase (ESBL) producing Escherichia coli, Leukocytosis Patient Disposition: Admitted As Inpatient Condition: Fair Discharge Instructions Interventions: ED Discharge Assessment Last Done: 11/16/24 18:28 Discharge Problem: Leukocytosis Qualifiers: Leukocytosis type: unspecified Qualified Code(s): D72.829 - Elevated white blood cell count, unspecified
[2024-11-16 15:30] LABS: Alanine Aminotransferase 24.0 U/L (7-52); Alkaline Phosphatase 98.0 U/L (34-104); Anion Gap 8.0 (3-11); Bilirubin,Total 0.6 mg/dl (0.2-1.0); Blood Urea Nitrogen 10.0 mg/dl (6-23); Calcium 9.3 mg/dl (8.6-10.3); Carbon Dioxide 28.0 mmol/L (21-32); Chloride 102.0 mmol/L (98-107); Creatinine Clr Calc Pharmacy 86.0 ml/min; Glucose 104.0 mg/dl (70-99(Fasting)); Lipase 4.0 U/L (11-82); Magnesium 1.8 mg/dl (1.7-2.4); Potassium 3.6 mmol/L (3.5-5.1); Sodium 138.0 mmol/L (136-145); Total Protein 7.1 gm/dl (6.0-8.3)
[2024-11-16] MEDS: ACETAMINOPHEN 1,000 MG/100 ML VIAL IV STA (15:31)
[2024-11-16] MEDS: ERTAPENEM 1000MG 1,000 MG/10 ML SYR IV STA (15:32)
[2024-11-16] MEDS: SODIUM CHLORIDE 0.9% 1,000 ML IV ONE (15:32)
[2024-11-16] MEDS: ONDANSETRON INJ 2 MG/ML 2 ML VIAL IV STA (15:32)
[2024-11-16 15:35] LABS: Immature Granulocytes # (auto) 0.06 K/uL (0.01-0.20); Immature Granulocytes % (auto) 0.5 %
[2024-11-16 15:41] LABS: INR 0.9 (0.9-1.1); Prothrombin Time 10.3 Seconds (9.0-12.0)
[2024-11-16] MEDS: OPTIRAY 320 100ml IV ONE (16:07)
--- NOTE | 2024-11-16 16:08 | Electrocardiogram Report ---
Test Reason : Blood Pressure : */* mmHG Vent. Rate : 91 BPM Atrial Rate : 91 BPM P-R Int : 126 ms QRS Dur : 72 ms QT Int : 328 ms P-R-T Axes : -19 -10 -9 degrees QTcB Int : 403 ms Normal sinus rhythm Nonspecific ST and T wave abnormality Abnormal ECG When compared with ECG of 18-Apr-2022 13:46, Vent. rate has increased by 31 bpm T wave inversion more evident in Inferior leads Confirmed by Mj Keller ([id number]) on 11/16/2024 4:08:07 PM Referred By: Confirmed By: Mj Keller
--- NOTE | 2024-11-16 17:27 | CT Scan Report ---
EXAMINATION: Abdomen and pelvis CT with CLINICAL HISTORY: Complicated UTI PRIORS: 04/15/2024 TECHNIQUE: Contiguous axial images were obtained through the abdomen and pelvis with the use of intravenous contrast. Sagittal and coronal reformations are supplied. FINDINGS: Mild hypoventilatory changes at the lung bases. The liver is enlarged measuring 18.7 cm with homogeneous enhancement. Small hepatic cyst is present subcapsular. Gallbladder surgically absent. The portal vein, pancreas, spleen, under distended stomach, adrenals, aorta and IVC are morphologically unremarkable. Surgical clips present in the upper abdomen. Small hiatal hernia is noted. Kidneys are in early excretory phase with bilaterally symmetric appearance, no striated nephrogram or abscess. Left parapelvic cysts are present. No uroepithelial contrast enhancement, hydronephrosis or hydro ureter. Urinary bladder distends normally with mild wall thickening and perivesicular inflammatory change. Single focus of gas present in the urinary bladder. No gas in the urinary bladder wall. No free fluid or adenopathy in the pelvis. Large amount of formed stool present in the colon. No dilated loops of bowel. No extraluminal gas, ascites or adenopathy. Postsurgical change of the lumbar spine with no acute osseous abnormality. IMPRESSION: 1. Mild circumferential urinary bladder wall thickening with mild perivesicular inflammatory change. A single focus of gas is present in the urinary bladder lumen. Please correlate if there is been recent instrumentation or if this could possibly represent a gas producing organism. No gas within the urinary bladder wall, evidence of pyelonephritis or renal abscess. 2. Extremely large amount of formed stool in the colon with no dilated loops of bowel. 3. Hepatomegaly. ACT 112: Positive. There are findings on this examination that require communication between the performing entity and the patient following Patient Test Result Information Act ([place] ACT 112) guidelines. Electronically signed by Zoraida White 11-16-2024 5:26 PM
[2024-11-16 17:31] LABS: Appearance Urine Clear (Clear); Bacteria Urine Automated None Seen (None Seen); Cast Urine Automated 0-2 /lpf (0-2); Glucose Urine UA Negative (Negative); RBC Urine Automated 0-2 /hpf (0-2)
--- NOTE | 2024-11-16 18:19 | History & Physical Report ---
Date of Service November 16, 2024 Assessment & Plan (1) Sepsis: (2) Constipation: (3) HTN (hypertension): Plan Pt is a 64 yo female with pmx HTN, Anxiety, Idiopathic Peripheral Neuropathy, GERD, and Hyperlipidemia, presents with flu like symptoms, fever , ache and constipation # Sepsis 2/2 UTI UTI infection on 11/03 treated with doxycycline; no improvement in symptoms, on 11/15 Macrobid, -Chronic constipation, full colon pressing on bladder, leading to urinary retention -At the ED, Urine WBC 11-20 (+), Urine Culture on 11/04 revealed E. Coli; Urine Culture ordered -CT scan abdomen pelvis shows mild urinary bladder wall thickening and bladder tac. Further, large amounts of formed stool in colon -CT Chest X-ray -- Unremarkable -BP on admission 145/92, Hr 102, Temp 36.3 -Etrapenam 1000 mg -CBC and BMP ordered -LR iv 125 mls/hr x 2 bags -Measure I/O # Constipation -Full colon exerting pressure on bladder -Ordered miralax 34 grams BID # HTN -Continue Hydrochlorothiazide 25 mg tablet; Lorazepam 0.5 mg # GERD - Continue Pepcid 20 mg DVT Prohylaxis -- Lovenox 40 mg Q 24 inj SC History of Present Illness Primary Care Provider: Tiburcio Cleary DO Pt is a 64-year-old female who presents to the ED with worsening flu like symptoms, which include fever, chills, and aches. She initially reported the start of UTI symptoms on 11/03 at her PCP complaining of urinary frequency, urgency, dysuria, cloudy/strong smelling urine. She was seen in the office on 11/03 and prescribed doxycycline because that is what her previous doctor had always given her and had cleared up her infections. She had been feeling better initially then after a few days started to have worsening after about a week. Her urine smelled bad and she felt burning and general malaise. Urine culture 11/04 showed E. coli ESBL with very limited sensitivity to antibiotics. She was given a course of Macrobid on 11/15, and did not feel improvement today Allergies Allergy/AdvReac Type Severity Reaction Status Date / Time bisacodyl Allergy Mild VIOLENTLY Verified 11/16/24 11:36 ILL N &V &DIARRHEA morphine Allergy Unknown RASH Verified 11/16/24 11:36 Influenza Virus Vaccines Allergy SEE COMMENT Verified 11/16/24 11:36 hydrocodone AdvReac Mild DIZZY AND Verified 11/16/24 11:36 NAUSEA Home Medications Medication Instructions Recorded Confirmed Type ropinirole 1 mg tablet 1 mg PO HS 07/18/18 11/16/24 History bupropion HCl 150 mg 24 hr tablet, 150 mg PO QAM 08/20/23 11/16/24 History extended release (Wellbutrin XL) Jean Romero #1 ea 07/26/24 11/16/24 Rx famotidine 20 mg tablet (Pepcid) 20 mg PO DAILY PRN Heartburn 07/26/24 11/16/24 History ropinirole 0.25 mg tablet 0.5 mg PO HS 07/26/24 11/16/24 History hydrochlorothiazide 25 mg tablet 25 mg PO QAM 08/25/24 11/16/24 History vitamin B complex 1 ea PO QDL 08/25/24 11/16/24 History cholecalciferol (vitamin D3) 25 25 mcg PO DAILY 09/20/24 11/16/24 History mcg (1,000 unit) capsule potassium chloride 10 mEq 40 meq PO DAILY 09/20/24 11/16/24 History tablet,extended release lorazepam 0.5 mg tablet 1 mg (2 x 0.5 mg) PO HS PRN 10/28/24 11/16/24 Rx anxiety 30 days #60 tabs nitrofurantoin 100 mg PO Q12H 7 days #14 caps 11/15/24 11/16/24 Rx monohydrate/macrocrystals 100 mg capsule pantoprazole 40 mg tablet,delayed 40 mg PO DAILY PRN as directed 11/16/24 11/16/24 History release Past Med/Surg History Problem List (Updated 11/16/24 @ 18:57 by Skye Souza MD) HTN (hypertension) Constipation Sepsis Statin intolerance HLD (hyperlipidemia) GERD (gastroesophageal reflux disease) History of depression HTN (hypertension) Hypokalemia Restless leg syndrome Idiopathic peripheral neuropathy Degenerative disc disease, lumbar Degenerative arthritis of knee, bilateral Medical History (Updated 11/16/24 @ 18:57 by Skye Souza MD) Sinus tarsi syndrome of left ankle History of COVID-19 summer 2019, not tested but had exposure and symptoms>resolved Encounter for pre-operative examination Osteoporosis DDD (degenerative disc disease) Spinal stenosis Liver cyst monitoring-no changes History of esophageal dilatation Thyroid nodule monitoring-no changes PTSD (post-traumatic stress disorder) Neuropathy PONV (postoperative nausea and vomiting) requests possible scopolamine patch pre op Surgical History History of cataract surgery Status post total right knee replacement Hx of arthroscopy of knee Hx laparoscopic cholecystectomy Hx of myringotomy History of tonsillectomy History of bladder surgery History of hysterectomy History of lumbar surgery History of colonoscopy History of repair of hiatal hernia History of esophagogastroduodenoscopy (EGD) S/P thyroid biopsy History of cardiac catheterization Family History Daughter PONV (postoperative nausea and vomiting) Grandmother (Paternal) Breast cancer Father Myocardial infarction, Onset Age: 46 Brother Myocardial infarction Other No pertinent family history in first degree relatives Denies family history of Ovarian cancer Prostate cancer Colorectal cancer Uterine cancer Social History Smoking Status: Never smoker Second Hand Exposure: No; Do You Dip or Chew Tobacco: No; Hx Alcohol Use: No Hx Substance Use: No Preferred Language: Slovenian Communication Ability: Effective Visual Impairment: Limited Hearing Ability: Normal [employer] Internship Required: No Beliefs That Will Affect Care: None marital status: Current Living Situation: Spouse current occupational status: unemployed current occupation: homemaker Feels Safe at Home: Yes Childhood Exposure to Second-Hand Smoke: Yes caffeine: Yes (tea) during the past year weight has: remained stable Dental Care, Regularly: Yes Physical Activity Frequency: Daily Seatbelt Use: always Sunscreen Use: Yes (sometimes) Assistive Devices: Walker Review of Systems Review of Systems: All systems reviewed & are unremarkable except as noted in HPI & below Physical Exam Constitutional: WD/WN, vitals as above Eyes: PERRL, conjunctivae normal, anicteric sclerae ENMT: external ear and nose normal, oropharynx normal Neck: trachea midline, no thyromegaly Respiratory: normal respiratory effort, lungs clear to auscultation Cardiovascular: RRR, no murmur, no edema Chest (Breasts): normal inspection/palpation of breasts Gastrointestinal (Abdomen): normal bowel sounds, soft, nontender, no hepatosplenomegaly Musculoskeletal: no cyanosis or clubbing, extremities motor strength 5/5 Extremities: extremities normal to inspection Skin: no rashes, warm and dry Psychiatric: A+Ox3, euthymic affect Lymphatic: no cervical or axillary lymphadenopathy Results & Data Results & Data Vital Signs (Past 12 Hours) Vital Signs Temp Pulse Pulse Resp BP BP Pulse Ox 11/16/24 16:47 145/92 H 11/16/24 16:47 145/92 H 11/16/24 16:45 102 H 16 145/92 H 94 11/16/24 16:30 180/95 H 11/16/24 16:00 100 H 22 158/84 H 93 11/16/24 15:33 94 H 26 H 96 11/16/24 15:30 102 H 24 173/96 H 95 11/16/24 15:27 93 H 24 11/16/24 15:18 97 H 24 95 11/16/24 15:00 97 H 11/16/24 14:57 96 H 11/16/24 14:51 91 H 24 11/16/24 14:33 100 H 18 156/115 H 97 11/16/24 14:06 36.9 C 93 H 20 185/122 H 99 O2 Del Method 11/16/24 16:47 11/16/24 16:47 11/16/24 16:45 11/16/24 16:30 11/16/24 16:00 11/16/24 15:33 11/16/24 15:30 Room Air 11/16/24 15:27 11/16/24 15:18 11/16/24 15:00 11/16/24 14:57 11/16/24 14:51 11/16/24 14:33 Room Air 11/16/24 14:06 Room Air Code Status & VTE Plan VTE Prophylaxis Plan VTE Prophylaxis will be ordered: Yes Supervising Physician Co-Signing Physician Notes I personally examined the patient and verified all thakkar points of history and exam, discussed case, and agree with decision making with Dr Harley camuria - failed outpt treatment, sent to hospital. chronic constipation as well vitals noted nad heent nc at mmm breathing unlabored no accessory muscles good effort skin no rashes no pallor or icterus neuro no focal deficits UTI w sepsis - ESBL - ertapenem (likely will need for 7 days - hopefully can set up for home for once she's doing better) recurrent UTIs - ?related to chronic constipation - either way chronic constipation discussed in depth DVT proph - lovenox otherwise as above Resident Activity Tracking Resident Involvement: Resident Care Provided Care Provided: Adult Hospital Medicine
[2024-11-16] MEDS ORDERED: FAMOTIDINE 20 MG TAB PO PRN (19:31)
[2024-11-16] MEDS ORDERED: MELATONIN 3 MG TAB PO PRN (19:31)
[2024-11-16] MEDS ORDERED: POLYETHYLENE (MIRALAX) 17 GM PACK PO PRN (19:31)
--- NOTE | 2024-11-16 19:49 | Billing Data ---
Date of Service November 16, 2024 Coding Level of Care Code 86029 INT INP/OBS CARE
[2024-11-16] MEDS: ACETAMINOPHEN 325 MG TAB PO PRN (19:53)
[2024-11-16] MEDS: POLYETHYLENE (MIRALAX) 17 GM PACK PO SCH (19:54)
[2024-11-16] MEDS: LORazepam 1 MG TAB PO PRN (19:54)
[2024-11-16] MEDS: ENOXAPARIN INJ 40 MG/0.4 ML SYR SQ SCH (19:56)
[2024-11-16] MEDS: LACTATED RINGER'S 1,000 ML IV SCH (20:04)
[2024-11-17 06:18] LABS: Hematocrit (blood only) 37.2 % (37.0-47.0); Hemoglobin 12.5 g/dl (12.0-16.0); Immature Granulocytes # (auto) 0.03 K/uL (0.01-0.20); Immature Granulocytes % (auto) 0.4 %; Mean Corpuscular Hemoglobin 29.5 pg (25.0-34.0); Mean Corpuscular Volume 87.7 fL (80.0-100.0); Platelet Count 215 K/uL (130-400); RDW Standard Deviation 42.0 fL (36.4-46.3); Red Blood Count 4.24 M/uL (4.20-5.40); White Blood Count 7.96 K/ul (4.8-10.8)
[2024-11-17 06:32] LABS: Anion Gap 6.0 (3-11); Blood Urea Nitrogen 7.0 mg/dl (6-23); Calcium 8.3 mg/dl (8.6-10.3); Carbon Dioxide 25.0 mmol/L (21-32); Chloride 106.0 mmol/L (98-107); Creatinine Clr Calc Pharmacy 106.3 ml/min; Glucose 110.0 mg/dl (70-99(Fasting)); Potassium 3.7 mmol/L (3.5-5.1); Sodium 137.0 mmol/L (136-145)
[2024-11-17] MEDS: ONDANSETRON INJ 2 MG/ML 2 ML VIAL IV PRN (08:55)
[2024-11-17] MEDS: POTASSIUM CHLORIDE 10 MEQ TABCR PO SCH (09:08)
[2024-11-17] MEDS: hydroCHLOROthiazide 25 MG TAB PO SCH (09:09)
[2024-11-17] MEDS: VITAMIN B COMPLEX TAB PO SCH (11:12)
[2024-11-17] MEDS: ERTAPENEM 1000MG 1,000 MG/10 ML SYR IV SCH (14:50)
--- NOTE | 2024-11-17 18:11 | Hospitalist Progress Note ---
Date of Service November 17, 2024 Assessment & Plan (1) Sepsis: (2) Constipation: (3) HTN (hypertension): Plan Pt is a 64 yo female with pmx HTN, Anxiety, Idiopathic Peripheral Neuropathy, GERD, and Hyperlipidemia, presents with flu like symptoms, fever , ache and constipation # Sepsis 2/2 UTI -UTI infection on 11/03 treated with doxycycline; no improvement in symptoms, on 11/15 Macrobid, -Chronic constipation, full colon pressing on bladder, leading to urinary retention -At the ED, Urine WBC 11-20 (+), Urine Culture on 11/04 revealed E. Coli; Urine Culture ordered -CT scan abdomen pelvis shows mild urinary bladder wall thickening and bladder tac. Further, large amounts of formed stool in colon -CT Chest X-ray -- Unremarkable -BP on admission 145/92, Hr 102, Temp 36.3 -Etrapenam 1000 mg q 24 -CBC and BMP ordered AM labs # Constipation -Full colon exerting pressure on bladder -Ordered miralax 34 grams BID # HTN -Continue Hydrochlorothiazide 25 mg tablet; Lorazepam 0.5 mg # GERD - Continue Pepcid 20 mg DVT Prohylaxis -- Lovenox 40 mg Q 24 inj SC Admission and Anticipated Discharge Date Admission Date: November 16, 2024 Supervising Physician Co-Signing Physician Notes I personally examined the patient and verified all thakkar points of history and exam, discussed case, and agree with decision making with Dr Harley mejia but maybe a little better. dtr present. updated pt and dtr to the best of my ability and answered all questions to their satisfaction vitals noted nad heent nc at mmm breathing unlabored no accessory muscles good effort skin no rashes no pallor or icterus neuro no focal deficits UTI w sepsis - ESBL - ertapenem (likely will need for 7 days - hopefully can set up for home for once she's doing better) - case management has set up anticipating hopefully she'll feel well enough to go home tomorrow and first dosing at home would be friday. obviously if myalgias don't improve or worsen then would need to consider concomitant etiologies - but unlikely recurrent UTIs - ?related to chronic constipation - either way chronic constipation discussed in depth constipation - miralax for now. ongoing maintenance regimen discussed DVT proph - lovenox otherwise as above Review of Systems Review of Systems: All systems reviewed & are unremarkable except as noted in HPI & below Physical Exam Constitutional: WD/WN, vitals as above Eyes: PERRL, conjunctivae normal, anicteric sclerae ENMT: external ear and nose normal, oropharynx normal Neck: trachea midline, no thyromegaly Respiratory: normal respiratory effort, lungs clear to auscultation Cardiovascular: RRR, no murmur, no edema Chest (Breasts): normal inspection/palpation of breasts Gastrointestinal (Abdomen): normal bowel sounds, soft, nontender, no hepatosplenomegaly Musculoskeletal: no cyanosis or clubbing, extremities motor strength 5/5 Extremities: extremities normal to inspection Skin: no rashes, warm and dry Psychiatric: A+Ox3, euthymic affect Lymphatic: no cervical or axillary lymphadenopathy Results & Data Results & Data Vital Signs (Past 12 Hours) Vital Signs Temp Pulse Resp BP Pulse Ox O2 Del Method 11/17/24 15:48 36.9 C 85 18 116/72 92 Room Air 11/17/24 11:45 36.8 C 91 H 18 142/81 H 92 Room Air 11/17/24 08:14 36.8 C 84 18 132/77 93 Room Air
--- NOTE | 2024-11-17 18:36 | Billing Data ---
Date of Service November 17, 2024 Coding Level of Care Code 63173 SUB INP/OBS CARE MIN
[2024-11-18 06:23] LABS: Hematocrit (blood only) 39.1 % (37.0-47.0); Hemoglobin 13.3 g/dl (12.0-16.0); Immature Granulocytes # (auto) 0.01 K/uL (0.01-0.20); Immature Granulocytes % (auto) 0.2 %; Mean Corpuscular Hemoglobin 30.0 pg (25.0-34.0); Mean Corpuscular Volume 88.1 fL (80.0-100.0); Platelet Count 228 K/uL (130-400); RDW Standard Deviation 42.7 fL (36.4-46.3); Red Blood Count 4.44 M/uL (4.20-5.40); White Blood Count 4.82 K/ul (4.8-10.8)
[2024-11-18 06:37] LABS: Anion Gap 3.0 (3-11); Blood Urea Nitrogen 8.0 mg/dl (6-23); Calcium 8.9 mg/dl (8.6-10.3); Carbon Dioxide 27.0 mmol/L (21-32); Chloride 107.0 mmol/L (98-107); Creatinine Clr Calc Pharmacy 91.1 ml/min; Glucose 114.0 mg/dl (70-99(Fasting)); Potassium 4.0 mmol/L (3.5-5.1); Sodium 137.0 mmol/L (136-145)
[2024-11-18 08:21] VITALS: RESP 18
[2024-11-18 11:34] VITALS: BP 113/75; PULSE 71; TEMP 97.7; O2SAT 93
[2024-11-18] MEDS: ERTAPENEM 1000MG 1,000 MG/10 ML SYR IV ONE (13:10)
--- NOTE | 2024-11-18 18:02 | Discharge Summary ---
Discharge Summary Date of Service November 18, 2024 Principal Dx & Hospital Course #1 = Principal Diagnosis (1) Sepsis: (2) Constipation: (3) HTN (hypertension): Plan Pt is a 64 yo female with pmx HTN, Anxiety, Idiopathic Peripheral Neuropathy, GERD, and Hyperlipidemia, presents with flu like symptoms, fever , ache and constipation # Sepsis 2/2 UTI -UTI infection on 11/03 failed outpt treatment - but was then found to be ESBL E Coli. ertapenem started - doing better. safe/stable for home - 7 days total ertapenem, remainder of dosing set up for home -with recurrent UTIs - ?chronic constipation with some overflow causing chronic gram negative contamination of pelvic floor? vs due to anatomic bladder issues --->d/w pt manage constipation first since it is far easier to remedy, then consider urology eval if still frequent/recurrent UTIs # Constipation -see above -discussed bowel regimen in depth/at length/repeatedly DVT Prohylaxis -- Lovenox 40 mg Q 24 inj SC safe/stable for home Notes For Next Care Provider Medication Changes From Visit ertapenem 1g IV daily x7 days total (started inpatient, remainder of 7d set up for home) -miralax for bowel regimen Admission HPI Per Admitting Provider Pt is a 64-year-old female who presents to the ED with worsening flu like symptoms, which include fever, chills, and aches. She initially reported the start of UTI symptoms on 11/03 at her PCP complaining of urinary frequency, urgency, dysuria, cloudy/strong smelling urine. She was seen in the office on 11/03 and prescribed doxycycline because that is what her previous doctor had always given her and had cleared up her infections. She had been feeling better initially then after a few days started to have worsening after about a week. Her urine smelled bad and she felt burning and general malaise. Urine culture 11/04 showed E. coli ESBL with very limited sensitivity to antibiotics. She was given a course of Macrobid on 11/15, and did not feel improvement today Discharge Exam gen [id number] pleasant nad heent nc at mmm breathing unlabored no accessory muscles good effort skin no rashes no pallor or icterus neuro no focal deficits Updated Medication List Medication Instructions Recorded Confirmed Type ropinirole 1 mg tablet 1 mg PO HS 07/18/18 11/16/24 History bupropion HCl 150 mg 24 hr tablet, 150 mg PO QAM 08/20/23 11/16/24 History extended release (Wellbutrin XL) Jean Romero #1 ea 07/26/24 11/16/24 Rx famotidine 20 mg tablet (Pepcid) 20 mg PO DAILY PRN Heartburn 07/26/24 11/16/24 History ropinirole 0.25 mg tablet 0.5 mg PO HS 07/26/24 11/16/24 History hydrochlorothiazide 25 mg tablet 25 mg PO QAM 08/25/24 11/16/24 History vitamin B complex 1 ea PO QDL 08/25/24 11/16/24 History cholecalciferol (vitamin D3) 25 25 mcg PO DAILY 09/20/24 11/16/24 History mcg (1,000 unit) capsule potassium chloride 10 mEq 40 meq PO DAILY 09/20/24 11/16/24 History tablet,extended release lorazepam 0.5 mg tablet 1 mg (2 x 0.5 mg) PO HS PRN 10/28/24 11/16/24 Rx anxiety 30 days #60 tabs pantoprazole 40 mg tablet,delayed 40 mg PO DAILY PRN as directed 11/16/24 11/16/24 History release polyethylene glycol 3350 17 gram 34 g PO BID #30 ea 11/18/24 Rx oral powder packet (Miralax) Hospital Stay Data Consultations 11/16/24 16:29 ED Decision to Admit Stat Diagnostic Imagining Performed 11/16/24 15:15 CT abd pelvis IV con only Stat Pending Results Patient Have Any Pending Studies at Discharge: No Discharge Instructions Given to Patient (Per Discharging Provider) You were admitted to the hospital due to sepsis secondary to UTI. Sepsis is a body response to an active infection. You were treated with IV fluids and IV antibiotics. - You will be discharge home today with Ertapenem, this is an antibiotic in the form of IV. You'll needed for 4 more days to complete 7 days - Home Health will visit home tomorrow - In term of the constipation, we recommended doing 34 mg of Miralax twice day until bowel movement. Then you can do 17 g (one packet) daily. A discharge summary will be sent to your primary care physician to ensure continuity of care. Please bring this discharge summary with you to your next office appointment so that your provider can review it at that time. Medications: Your medication list has been reviewed and reconciled upon discharge to ensure accuracy and continuity of care. An updated list of all your medications is included with your hospital discharge paperwork. Please review this list closely and make note of any changes to your medications. Follow up appointments: - Make a follow up appointment with your PCP within the next week. It is very important that you follow up with them shortly after discharge from the hospital. - Keep all of your follow up appointments as already scheduled. If you cannot make an appointment, notify your provider. CONTACT YOUR PRIMARY CARE PROVIDER if you experience any of the following: - Difficulty following your treatment plan - Difficulty taking any of your medications CALL 911 OR GO TO THE EMERGENCY DEPARTMENT if you experience any of the following: - Sudden, severe abdominal pain or nausea/vomiting - Severe chest pain or chest pain that radiates to your jaw or arm - Sudden, severe shortness of breath or difficulty breathing Total Time Total Time Spent Total Time Spent (In Minutes): <30
--- NOTE | 2024-11-18 18:03 | Billing Data ---
Date of Service November 18, 2024 Coding Level of Care Code 14316 IN/OBS DISCH 30 MIN/LESS
== END 2024-11-18 14:36 | disposition home health service (06) | DRG 872 ==
LOC: ED 14:02 → INTOOBSV 17:57 → 4W 17:57